=== PATIENT | male | born 1945 ===

== ENCOUNTER 2017-12-13 08:40 | Day surgery (SDC) | payer MEDICARE, OTHER ==
[~2017-12-13] VITALS: Ht 177.8 cm; Wt 65.8 kg
[2017-12-13] MEDS ORDERED: CHOL10002 (09:26)
[2017-12-13] MEDS ORDERED: [UNRECOGNIZED DRUG - CODE] (09:26)
== END 2017-12-13 12:15 | disposition home or self-care (01) ==
LOC: ORSCSDS 08:40
PROVIDERS: Surgery
PROC: 0DJD8ZZ Inspection of Lower Intestinal Tract, Via Natural or Artificial Opening Endoscopic (ICD-10-PCS; principal; 2017-12-13 09:45)
DX: Z12.11 Encounter for screening for malignant neoplasm of colon (principal); K57.30 Diverticulosis of large intestine without perforation or abscess without bleeding
CPT/HCPCS: J7120

== ENCOUNTER → 2018-12-08 | Outpatient (CLI) | payer MEDICARE, OTHER ==
[~2018-12-08] MED LIST: CHOL10002; [UNRECOGNIZED DRUG - CODE]
[2018-12-08 15:16] LABS: Creatinine Urine 37.8 mg/dL (27.00-270.00)
[2018-12-08 15:22] LABS: Calcium, Urine <5.0 mg/dL (< 17.5); Calcium, Urine Calculation Unable to Calculate mg/24hrs (42.0-353.0)
== END | disposition home or self-care (01) ==
LOC: LAB 09:54 → LAB SHORT 09:54
PROVIDERS: Internal Medicine Endocrinology, Diabetes & Metabolism
DX: M81.0 Age-related osteoporosis without current pathological fracture (principal)
CPT/HCPCS: 81050; 82340; 82570